=== PATIENT | female | born 1950 | race Asian ===

== ENCOUNTER 2016-11-01 09:37 | Outpatient (CLI) | payer OTHER ==
[~2016-11-01 09:37] MED LIST: ACET7.5T70 PO; ALBU90AE13 INH; ALEN70TA19 PO; CALCIUM75 MG PO; CLARINEX5 MG PO; DICL1GEL2 TOP; DOCU100C10 PO; FERROUS SULF324 MG PO; FLUTMIS6 INH; FOLI1TAB26 PO; FURO20TA67 PO; IMITREX100 MG PO; KLOR-CON M2020 MEQ PO; LANOXIN 0.120.125 M1 PO; LIPITOR20 MG PO; LIPITOR40 MG PO; MECLIZINE25 MG PO; METO50TA63 PO; MOBIC7.5 M1 PO; NEXIUM40 M1 PO; NIFE30TA PO; UNITH DIRECT88 MCG PO
== END 2016-11-01 10:37 | disposition home or self-care (01) ==
LOC: MAMMO 09:37
DX: Z12.31 Encounter for screening mammogram for malignant neoplasm of breast (principal)
CPT/HCPCS: G0202-TC

== ENCOUNTER 2016-12-31 10:35 | Outpatient (CLI) | payer OTHER ==
[2016-12-31 11:25] LABS: POTASSIUM 4.1 mmol/L (3.6-5.2)
== END 2016-12-31 19:34 | disposition home or self-care (01) ==
LOC: LABW 10:35
PROVIDERS: Family Medicine
DX: R25.2 Cramp and spasm (principal)
CPT/HCPCS: 36415; 80053; 83735

== ENCOUNTER 2017-08-29 12:06 | Outpatient (CLI) | payer OTHER ==
[2017-08-29 13:36] LABS: PLATELET COUNT 168 K/uL (152-353)
[2017-08-29 13:58] LABS: POTASSIUM 3.6 mmol/L (3.6-5.2); SODIUM 138 mmol/L (136-145)
== END 2017-08-29 13:10 | disposition home or self-care (01) ==
LOC: LABW 12:06
PROVIDERS: Family Medicine
DX: I10 Essential (primary) hypertension (principal); E03.8 Other specified hypothyroidism; E78.4 Other hyperlipidemia; G43.809 Other migraine, not intractable, without status migrainosus; E55.9 Vitamin D deficiency, unspecified
CPT/HCPCS: 36415; 80053; 80061; 81000; 82043; 82150; 82306; 82570; 82607; 82746; 83690; 83735; 84439; 84443; 84481; 84550; 85027

== ENCOUNTER 2017-09-30 12:23 | Outpatient (CLI) | payer OTHER | END 2017-09-30 13:25 | disposition home or self-care (01) | LOC: RAD 12:23 | DX: J44.9 Chronic obstructive pulmonary disease, unspecified (principal); J40 Bronchitis, not specified as acute or chronic ==

== ENCOUNTER 2017-10-14 08:46 | Emergency (ER) | payer OTHER ==
[~2017-10-14] VITALS: Ht 157.5 cm; Wt 101.6 kg
[2017-10-14] MEDS ORDERED: CETIRIZINE10 MG PO (09:27)
[2017-10-14] MEDS ORDERED: VITAMIN B-121000 MC2 PO (09:28)
[2017-10-14] MEDS ORDERED: PROAIR HFA IN (09:29)
[2017-10-14] MEDS ORDERED: NITROSTAT0.4 MG SL (09:30)
[2017-10-14] MEDS ORDERED: ASPIR-8181 MG OR (09:31)
[2017-10-14] MEDS ORDERED: D3-50 OR (09:31)
[2017-10-14] MEDS ORDERED: MAG OXIDE400 M2 OR (09:32)
[2017-10-14] MEDS ORDERED: B-121000 MCG SL (09:32)
[2017-10-14] MEDS ORDERED: FIORICET 50-3001 CAP PO (09:33)
[2017-10-14] MEDS ORDERED: ZANTAC300 MG PO (09:33)
[2017-10-14 10:49] LABS: PLATELET COUNT 162 K/uL (152-353)
[2017-10-14 10:57] LABS: POTASSIUM 3.8 mmol/L (3.6-5.2); SODIUM 137 mmol/L (136-145)
[2017-10-14 11:30] VITALS: BP 135/62; TEMP 100.7
== END 2017-10-14 11:45 | disposition home or self-care (01) ==
LOC: ED 08:46
PROVIDERS: Emergency Medicine
DX: J06.9 Acute upper respiratory infection, unspecified (principal)
CPT/HCPCS: 36415; 80053; 85027; 99283; J1642

== ENCOUNTER 2018-03-26 12:20 | Outpatient (CLI) | payer OTHER ==
[~2018-03-26 12:20] MED LIST changes: +ASPIR-8181 MG OR; +B-121000 MCG SL; +CETIRIZINE10 MG PO; +D3-50 OR; +FIORICET 50-3001 CAP PO; +MAG OXIDE400 M2 OR; +NITROSTAT0.4 MG SL; +PROAIR HFA IN; +VITAMIN B-121000 MC2 PO; +ZANTAC300 MG PO
[2018-03-26 12:54] LABS: PLATELET COUNT 239 K/uL (152-353)
[2018-03-26 13:13] LABS: POTASSIUM 3.6 mmol/L (3.6-5.2)
== END 2018-03-26 23:22 | disposition home or self-care (01) ==
LOC: LABW 12:20
PROVIDERS: Family Medicine
DX: R10.84 Generalized abdominal pain (principal); E53.8 Deficiency of other specified B group vitamins; E78.00 Pure hypercholesterolemia, unspecified; K21.9 Gastro-esophageal reflux disease without esophagitis; E55.9 Vitamin D deficiency, unspecified
CPT/HCPCS: 36415; 80053; 80061; 81000; 82306; 82607; 83735; 84439; 84443; 84550; 85027; 87086; 87088

== ENCOUNTER 2018-04-30 20:58 | Emergency (ER) | payer OTHER ==
[~2018-04-30] VITALS: Ht 160 cm; Wt 113.4 kg
[2018-04-30 22:20] LABS: PLATELET COUNT 217 K/uL (152-353)
[2018-04-30 22:46] LABS: POTASSIUM 4.1 mmol/L (3.6-5.2); SODIUM 140 mmol/L (136-145)
[2018-04-30 23:30] VITALS: BP 146/64; TEMP 98.9
== END 2018-04-30 23:30 | disposition home or self-care (01) ==
LOC: ED 20:58
DX: L12.0 Bullous pemphigoid (principal)
CPT/HCPCS: 36415; 80053; 85027; 99283

== ENCOUNTER 2018-07-08 11:07 | Outpatient (CLI) | payer OTHER ==
[2018-07-08 12:02] LABS: PLATELET COUNT 216 K/uL (152-353)
[2018-07-08 13:01] LABS: POTASSIUM 4.1 mmol/L (3.6-5.2)
== END 2018-07-08 22:23 | disposition home or self-care (01) ==
LOC: LABW 11:07
PROVIDERS: Family Medicine
DX: R53.83 Other fatigue (principal)
CPT/HCPCS: 36415; 80053; 84439; 84443; 85027

== ENCOUNTER 2018-07-25 10:12 | Outpatient (CLI) | payer OTHER | END 2018-07-25 19:05 | disposition home or self-care (01) | LOC: MAMMO 10:12 | DX: N63.10 Unspecified lump in the right breast, unspecified quadrant (principal); N63.20 Unspecified lump in the left breast, unspecified quadrant; R59.1 Generalized enlarged lymph nodes ==

== ENCOUNTER 2018-09-24 11:13 | Outpatient (CLI) | payer OTHER | END 2018-09-24 20:17 | disposition home or self-care (01) | LOC: LABW 11:13 | PROVIDERS: Specialist | DX: E78.2 Mixed hyperlipidemia (principal); I25.10 Atherosclerotic heart disease of native coronary artery without angina pectoris; Z79.899 Other long term (current) drug therapy; R00.2 Palpitations | CPT/HCPCS: 36416; 80061; 80076; 93225 ==

== ENCOUNTER 2018-12-09 16:13 | Inpatient (IN) | payer OTHER ==
[~2018-12-09] VITALS: Ht 162.6 cm; Wt 79.5 kg
[2018-12-09 18:31] LABS: POTASSIUM 4.4 mmol/L (3.6-5.2)
[2018-12-09 19:08] LABS: PLATELET COUNT 57 K/uL (152-353)
[2018-12-09 20:42] VITALS: BP 121/60; TEMP 98.7; Ht 162.6 cm; Wt 79.5 kg
[2018-12-09] MEDS ORDERED: FURO20TA67 PO (23:17)
[2018-12-09] MEDS ORDERED: KLOR-CON M2020 MEQ PO (23:19)
[2018-12-09] MEDS ORDERED: IMITREX100 MG PO (23:21)
[2018-12-09] MEDS ORDERED: HYDR-3182 PO (23:29)
[2018-12-10] VITALS: BP 138/65; TEMP 98.8
[2018-12-10 04:00] VITALS: BP 139/66; TEMP 98.5
[2018-12-10 05:46] LABS: PLATELET COUNT 55 K/uL (152-353)
[2018-12-10 08:06] VITALS: BP 142/68; TEMP 98.2
[2018-12-10 12:00] VITALS: BP 141/67; TEMP 98.4
[2018-12-10 16:00] VITALS: BP 153/84; TEMP 98.4
[2018-12-10 20:00] VITALS: BP 135/59; TEMP 98.4
[2018-12-11] VITALS: BP 124/58; TEMP 98.5
[2018-12-11 04:00] VITALS: BP 140/89; TEMP 98.2
[2018-12-11 08:00] VITALS: BP 147/13; TEMP 98.4
[2018-12-11 12:00] VITALS: BP 152/82; TEMP 97.9
[2018-12-11 13:07] LABS: PLATELET COUNT 47 K/uL (152-353)
[2018-12-11 13:20] LABS: POTASSIUM 3.8 mmol/L (3.6-5.2)
[2018-12-11 16:16] VITALS: BP 128/70; TEMP 98.8
[2018-12-11 20:00] VITALS: BP 144/70; TEMP 98.9
[2018-12-12] VITALS: BP 144/73; TEMP 98.6
[2018-12-12 04:00] VITALS: BP 140/67; TEMP 98.2
[2018-12-12 08:00] VITALS: BP 141/66; TEMP 98.5
[2018-12-12 12:00] VITALS: BP 149/71; TEMP 98.9
[2018-12-12 16:00] VITALS: BP 146/68; TEMP 99.1
== END 2018-12-12 23:05 | disposition home or self-care (01) | DRG 812 ==
LOC: MED/SURG 16:13
PROVIDERS: ADMIT Family Medicine
PROC: 30243N1 Transfusion of Nonautologous Red Blood Cells into Central Vein, Percutaneous Approach (ICD-10-PCS; principal; 2018-12-10)
DX: D64.89 Other specified anemias (principal); C85.80 Other specified types of non-Hodgkin lymphoma, unspecified site; A04.5 Campylobacter enteritis; E86.0 Dehydration; R05 Cough; R23.1 Pallor; G89.18 Other acute postprocedural pain; I25.10 Atherosclerotic heart disease of native coronary artery without angina pectoris; J44.9 Chronic obstructive pulmonary disease, unspecified; D69.6 Thrombocytopenia, unspecified; D72.828 Other elevated white blood cell count; R63.0 Anorexia; G47.09 Other insomnia
CPT/HCPCS: 80053; 81000; 82272; 83630; 85007; 85014; 85018; 85027; 86850; 86900; 86901; 86922; 87015; 87040; 87045; 87324; 87328; 87329; 87449; 87899; J1642; J1650; J1956; J2550; J3490; P9016

== ENCOUNTER 2019-01-21 17:19 | Emergency (ER) | payer OTHER ==
[~2019-01-21] VITALS: Ht 162.6 cm; Wt 79.4 kg
[~2019-01-21 17:19] MED LIST changes: +HYDR-3182 PO
[2019-01-21 19:34] LABS: PLATELET COUNT 284 K/uL (152-353)
[2019-01-21 19:46] LABS: POTASSIUM 4.5 mmol/L (3.6-5.2)
[2019-01-21 20:30] VITALS: BP 138/67; TEMP 98.2
== END 2019-01-21 20:33 | disposition home or self-care (01) ==
LOC: ED 17:19
PROVIDERS: Emergency Medicine
DX: C95.90 Leukemia, unspecified not having achieved remission (principal); E86.0 Dehydration
CPT/HCPCS: 36415; 80053; 85007; 85027; 96360; 99284; J1642